=== PATIENT | female | born 2000 ===

== ENCOUNTER 2024-04-05 00:15 | Emergency (ER) | payer OTHER ==
[2024-04-05] MEDS: Ketorolac 30 MG/ML SDV IVPUSH ONE (00:37)
== END 2024-04-05 02:08 | disposition home or self-care (01) ==
LOC: MW.ED 00:15
DX: Z04.1 Encounter for examination and observation following transport accident (principal); Z79.899 Other long term (current) drug therapy
CPT/HCPCS: 71045; 96374; 99284; J1885